=== PATIENT | female | born 1950 | race Caucasian/White ===

== ENCOUNTER → 2016-12-20 | Outpatient (CLI) | payer MEDICARE | LOC: RAD 08:44 | DX: M25.571 Pain in right ankle and joints of right foot (principal); M79.89 Other specified soft tissue disorders | CPT/HCPCS: 73610 ==

== ENCOUNTER → 2020-08-25 | Outpatient (CLI) | payer MEDICARE, OTHER ==
[~2020-08-25] MED LIST: ANTIVERT 25MG T25 MG PO; CARVEDILOL3.125 MG PO; CELEXA20 MG PO; COZAAR100 MG PO; ELIQUIS 5 MG TAB5 MG PO; KLONOPIN TAB 00.5 MG PO; MECLIZINE HCL25 MG PO; MOBIC15 MG PO; NITROSTAT0.4 MG SL; NORVASC2.5 MG PO; PEPCID40 MG PO; PROPAFENONE HC225 M1 PO; TOPROL XL25 MG PO; VISTARIL25 MG PO; VITAMIN D250000 UNIT PO
== END ==
LOC: US 08-17 08:45
DX: K76.0 Fatty (change of) liver, not elsewhere classified (principal); N28.89 Other specified disorders of kidney and ureter
CPT/HCPCS: 76700

== ENCOUNTER → 2020-09-18 | Outpatient (CLI) | payer MEDICARE, OTHER | LOC: ECHO 09-13 11:00 → HEART 5 11:29 | DX: I48.0 Paroxysmal atrial fibrillation (principal); I07.1 Rheumatic tricuspid insufficiency; I27.20 Pulmonary hypertension, unspecified; R93.1 Abnormal findings on diagnostic imaging of heart and coronary circulation | CPT/HCPCS: 93306 ==

== ENCOUNTER 2020-09-28 10:16 | Emergency (ER) | payer MEDICARE, OTHER ==
[2020-09-28 11:21] LABS: HEMOGLOBIN 15.7 gm/dl (12.3-15.3); RED BLOOD COUNT 5.3 M/UL (4.00-5.10)
[2020-09-28 11:52] LABS: BUN/CREATININE RATIO 17 (0-10)
== END 2020-09-28 13:15 | disposition home or self-care (01) ==
LOC: ER1 10:16
PROVIDERS: Emergency Medicine
DX: I95.9 Hypotension, unspecified (principal); E87.6 Hypokalemia; I48.91 Unspecified atrial fibrillation; E78.5 Hyperlipidemia, unspecified; Z88.0 Allergy status to penicillin; Z88.2 Allergy status to sulfonamides; Z79.01 Long term (current) use of anticoagulants
CPT/HCPCS: 71045; 80053; 81001; 82550; 82553; 83605; 83874; 84484; 85025; 85610; 85730; 93005; 99285

== ENCOUNTER 2021-05-24 11:37 | Emergency (ER) | payer MEDICARE ==
[2021-05-24] MEDS ORDERED: CYCLOBENZAPRINE10 MG PO (13:50)
== END 2021-05-24 14:12 | disposition home or self-care (01) ==
LOC: ER1 11:37
DX: S76.312A Strain of muscle, fascia and tendon of the posterior muscle group at thigh level, left thigh, initial encounter (principal); I10 Essential (primary) hypertension; I48.91 Unspecified atrial fibrillation; W19.XXXA Unspecified fall, initial encounter
CPT/HCPCS: 73552; 73590; 96372; 96374; 99283; J1885; J2360

== ENCOUNTER 2022-01-31 19:34 | Emergency (ER) | payer MEDICARE ==
[~2022-01-31 19:34] MED LIST changes: -COZAAR100 MG PO; +COZAAR25 MG PO; +CYCLOBENZAPRINE10 MG PO; +PEPCID20 MG PO; -PEPCID40 MG PO; +VITAMIN D21250 MCG PO; -VITAMIN D250000 UNIT PO
== END 2022-01-31 21:53 | disposition home or self-care (01) ==
LOC: ER1 19:34
DX: S90.32XA Contusion of left foot, initial encounter (principal); I48.91 Unspecified atrial fibrillation; I10 Essential (primary) hypertension; Z88.0 Allergy status to penicillin; Z88.1 Allergy status to other antibiotic agents; Z88.8 Allergy status to other drugs, medicaments and biological substances; W22.8XXA Striking against or struck by other objects, initial encounter; Y92.009 Unspecified place in unspecified non-institutional (private) residence as the place of occurrence of the external cause
CPT/HCPCS: 73610; 73630; 90471; 90715; 99283

== ENCOUNTER 2022-02-03 20:08 | Inpatient (IN) | payer MEDICARE ==
[~2022-02-03] VITALS: Ht 160 cm; Wt 79.4 kg
[2022-02-03 21:54] LABS: HEMOGLOBIN 14.5 gm/dl (12.3-15.3); RED BLOOD COUNT 4.93 M/UL (4.00-5.10); WHITE BLOOD COUNT 7.5 K/UL (4.5-11.0)
[2022-02-03 22:09] LABS: BUN/CREATININE RATIO 17 (0-10)
[2022-02-04 05:58] LABS: HEMOGLOBIN 13.5 gm/dl (12.3-15.3); RED BLOOD COUNT 4.61 M/UL (4.00-5.10)
[2022-02-04 06:01] LABS: WHITE BLOOD COUNT 5.6 K/UL (4.5-11.0)
[2022-02-04 06:19] LABS: BUN/CREATININE RATIO 19 (0-10)
[2022-02-04] MEDS ORDERED: VENLAFAXINE HC100 MG PO (10:20)
[2022-02-04] MEDS ORDERED: HYDROCHLOROTHIA25 MG PO (10:21)
[2022-02-04] MEDS ORDERED: ELIQUIS5 MG PO (10:21)
[2022-02-04] MEDS ORDERED: FLECAINIDE ACE100 MG PO (10:22)
[2022-02-04] MEDS ORDERED: CARVEDILOL12.5 MG PO (10:23)
[2022-02-05 06:01] LABS: HEMOGLOBIN 13.1 gm/dl (12.3-15.3); RED BLOOD COUNT 4.48 M/UL (4.00-5.10); WHITE BLOOD COUNT 5.1 K/UL (4.5-11.0)
[2022-02-05 06:27] LABS: BUN/CREATININE RATIO 19 (0-10)
[2022-02-06 06:08] LABS: HEMOGLOBIN 13.5 gm/dl (12.3-15.3); RED BLOOD COUNT 4.61 M/UL (4.00-5.10); WHITE BLOOD COUNT 5.6 K/UL (4.5-11.0)
[2022-02-06 09:49] LABS: BUN/CREATININE RATIO 19 (0-10)
[2022-02-06] MEDS ORDERED: DOXYCYCLINE HY100 M2 PO ×2 (11:11→11:13)
[2022-02-06] MEDS ORDERED: CEFDINIR300 MG PO (11:11)
[2022-02-06] MEDS ORDERED: TYLOPHEN500 MG PO (12:38)
== END 2022-02-06 14:10 | disposition home or self-care (01) | DRG 605 ==
LOC: ER1 20:08 → M/S 22:05 → CDU 22:05 → M/S 02-04 00:14
PROVIDERS: Internal Medicine; Physician Assistant; ADMIT Internal Medicine
DX: S90.32XA Contusion of left foot, initial encounter (principal); I96 Gangrene, not elsewhere classified; L02.416 Cutaneous abscess of left lower limb; L03.116 Cellulitis of left lower limb; Z20.822 Contact with and (suspected) exposure to COVID-19; M79.81 Nontraumatic hematoma of soft tissue; I48.91 Unspecified atrial fibrillation; I10 Essential (primary) hypertension; F41.9 Anxiety disorder, unspecified; Z79.01 Long term (current) use of anticoagulants; Z98.51 Tubal ligation status; Z98.890 Other specified postprocedural states; Z88.0 Allergy status to penicillin; Z88.2 Allergy status to sulfonamides; Z82.49 Family history of ischemic heart disease and other diseases of the circulatory system; W55.19XA Other contact with horse, initial encounter
CPT/HCPCS: 36415; 73718; 80048; 80053; 80202; 82550; 83735; 85025; 85027; 85652; 86140; 87040; 87070; 87077; 87186; 87205; 96365; 96366; 96375; 99284; J1335; J1885; J3370; J7030; J7070